=== PATIENT | female | born 1975 | race Hispanic/Latino ===

== ENCOUNTER 2021-10-05 09:39 | Emergency (ER) | payer BC ==
[~2021-10-05] VITALS: Ht 160 cm; Wt 69.1 kg
[2021-10-05] MEDS ORDERED: SAME PO (09:55)
[2021-10-05] MEDS ORDERED: MILK87.5 PO (09:55)
[2021-10-05] MEDS ORDERED: D3 +TAB PO (09:55)
[2021-10-05] MEDS ORDERED: VITA500C24 PO (09:55)
[2021-10-05] MEDS ORDERED: NS 1,000 ML IV ONE (10:25)
[2021-10-05 10:43] LABS: BASO % 0.3 % (0.0-1.0); EOS # 0.2 10^3/uL (0.0-0.5); EOS % 2.4 % (0.0-3.0); HEMATOCRIT 45.2 % (36.0-47.0); HEMOGLOBIN 14.7 g/dl (12.0-15.5); LYMPH # 1.6 10^3/uL (1.5-5.0); LYMPH % 22.3 % (24.0-44.0); MEAN CORPUSCULAR HEMOGLOBIN 29.6 pg (27.0-33.0); MEAN CORPUSCULAR HGB CONC 32.5 g/dl (32.0-36.5); MEAN CORPUSCULAR VOLUME 90.9 fl (80.0-96.0); MONO # 0.4 10^3/uL (0.0-0.8); MONO % 5.9 % (2.0-8.0); NEUTROPHILS # 4.9 10^3/uL (1.5-8.5); PLATELET COUNT, AUTOMATED 240 10^3/uL (150-450); RED BLOOD COUNT 4.97 10^6/uL (4.00-5.40); WHITE BLOOD COUNT 7.1 10^3/uL (4.0-10.0)
[2021-10-05 11:11] LABS: ALBUMIN 3.6 GM/DL (3.2-5.2); ALT/SGPT 28 U/L (12-78); AMYLASE 44 U/L (25-115); BILIRUBIN,DIRECT 0.1 MG/DL (0.0-0.2); BILIRUBIN,TOTAL 0.8 MG/DL (0.2-1.0); BLOOD UREA NITROGEN 9 MG/DL (7-18); CALCIUM LEVEL 8.6 MG/DL (8.5-10.1); CARBON DIOXIDE LEVEL 26 MEQ/L (21-32); CHLORIDE LEVEL 111 MEQ/L (98-107); CREATININE FOR GFR 0.76 MG/DL (0.55-1.30); GLOMERULAR FILTRATION RATE > 60.0 (>58); GLUCOSE, FASTING 94 MG/DL (70-100); LIPASE 90 U/L (73-393); POTASSIUM SERUM 4.2 MEQ/L (3.5-5.1); SODIUM LEVEL 143 MEQ/L (136-145); TOTAL PROTEIN 6.6 GM/DL (6.4-8.2)
--- NOTE | 2021-10-05 12:10 | REP ---
INDICATION: right abd pain COMPARISON: None. TECHNIQUE: Real time ralph scale ultrasound examination using curved array transducer. FINDINGS: Liver is normal in contour, size, and echogenicity without focal hepatic lesions identified. Pancreas is incompletely evaluated due to interposed bowel gas. The gallbladder is normal and without gallstones, wall thickening, or pericholecystic fluid. No biliary ductal dilatation is appreciated and the common bile duct measures 3.8 mm diameter. Right kidney is normal in reniform shape without hydronephrosis and measures 10.8 x 4.4 x 5.0 cm. Multiple nonobstructing intrarenal calculi suggested. No ascites in the visualized right upper quadrant. IMPRESSION: 1. Nephrolithiasis. <Electronically signed by Sha Solis > 10/05/21 [id number]
--- NOTE | 2021-10-05 13:01 | REP ---
INDICATION: ruq/flank pain. COMPARISON: None. TECHNIQUE: Standard helical technique without intravenous or oral bowel preparatory contrast secondary to right flank pain. Stone protocol utilized. FINDINGS: The lung bases are clear. There is no nephroureterolithiasis, hydronephrosis, or hydroureter. There are no urinary bladder calcifications. The abdominal aorta and para-aortic regions are within normal limits. The bowel loops and the mesenteries are within normal limits. There is no free fluid or free air. Limited evaluation of the solid intra-abdominal organs and gallbladder show no gross abnormality. In the left anterior adnexa there is a round 3.5 cm sized low-density structure having slightly higher than water density Hounsfield unit readings. Bone window technique throughout the examination shows the osseous structures to be within normal limits. IMPRESSION: 1. Likely simple left ovarian cyst as described above. 2. No abnormal renal or renal collecting system findings as described above. 3. Other findings as described above. <Electronically signed by Dain Hinson > 10/05/21 [id number]
[2021-10-05 14:01] VITALS: BP 130/76
== END 2021-10-05 14:11 | disposition home or self-care (01) ==
LOC: M ED 09:39
DX: N20.0 Calculus of kidney (principal); K76.0 Fatty (change of) liver, not elsewhere classified

== ENCOUNTER 2022-06-01 17:53 | Emergency (ER) | payer OTHER ==
[~2022-06-01] VITALS: Ht 157.5 cm; Wt 71.2 kg
[~2022-06-01 17:53] MED LIST: D3 +TAB PO; MILK87.5 PO; SAME PO; VITA500C24 PO
[2022-06-01 22:14] LABS: BASO % 0.2 % (0.0-1.0); EOS # 0.2 10^3/uL (0.0-0.5); EOS % 1.5 % (0.0-3.0); HEMATOCRIT 44.9 % (36.0-47.0); LYMPH % 17.1 % (24.0-44.0); MEAN CORPUSCULAR HEMOGLOBIN 30.9 pg (27.0-33.0); MEAN CORPUSCULAR HGB CONC 33.4 g/dl (32.0-36.5); MEAN CORPUSCULAR VOLUME 92.4 fl (80.0-96.0); MONO # 0.5 10^3/uL (0.0-0.8); MONO % 4.5 % (2.0-8.0); NEUTROPHILS # 9.1 10^3/uL (1.5-8.5); NEUTROPHILS % 76.3 % (36.0-66.0); PLATELET COUNT, AUTOMATED 210 10^3/uL (150-450); RED BLOOD COUNT 4.86 10^6/uL (4.00-5.40); WHITE BLOOD COUNT 11.9 10^3/uL (4.0-10.0)
[2022-06-01] MEDS ORDERED: ACETAMINOPHEN TAB 650MG DOSE (2X325MG) PO ONE (22:40)
[2022-06-01] MEDS ORDERED: IBUPROFEN 800 MG TAB PO ONE (22:40)
[2022-06-01] MEDS ORDERED: CEFDINIR 300 MG CAP (OMNICEF) PO ONE (23:40)
[2022-06-02] MEDS ORDERED: CEFD300C41 PO (00:27)
[2022-06-02 00:41] VITALS: BP 122/74
== END 2022-06-02 00:49 | disposition home or self-care (01) ==
LOC: M ED 17:53
DX: N39.0 Urinary tract infection, site not specified (principal); N83.202 Unspecified ovarian cyst, left side; M46.97 Unspecified inflammatory spondylopathy, lumbosacral region; Z90.710 Acquired absence of both cervix and uterus; K21.9 Gastro-esophageal reflux disease without esophagitis; Z79.899 Other long term (current) drug therapy